=== PATIENT | female | born 1975 | race American Indian/Alaskan Native ===

== ENCOUNTER 2017-09-19 18:45 | Emergency (ER) | payer OTHER ==
[2017-09-19 19:38] LABS: Basophils % (Auto) 1.2 % (0.0-1.8); Eosinophils % (Auto) 0.8 % (0.0-4.3); Hematocrit 37.4 % (30.3-42.9); Hemoglobin 11.9 gm/dl (10.1-14.3); Mean Corpuscular HGB Conc 32 % (30-34); Mean Corpuscular Hemoglobin 27 pg (28-32); Mean Corpuscular Volume 83 fl (79-97); Platelet Count 272 K/mm3 (140-440); Red Blood Count 4.49 M/mm3 (3.65-5.03); Red Cell Distribution Width 15.1 % (13.2-15.2); White Blood Count 6.1 K/mm3 (4.5-11.0)
[2017-09-19 19:43] LABS: INR 0.9 (0.87-1.13)
[2017-09-19 19:49] LABS: Alanine Aminotransferase 15 units/L (7-56); Albumin/Globulin Ratio 1.3 %; Alkaline Phosphatase 47 units/L (35-129); Anion Gap 16 mmol/L; BUN/Creatinine Ratio 21; Blood Urea Nitrogen 19 mg/dL (7-17); Calcium 9.2 mg/dL (8.4-10.2); Carbon Dioxide 25 mmol/L (22-30); Chloride 101.6 mmol/L (98-107); Glucose 66 mg/dL (65-100); Partial Thromboplastin Time 34.9 Sec. (24.2-36.6); Potassium 3.9 mmol/L (3.6-5.0); Sodium 139 mmol/L (137-145)
--- NOTE | 2017-09-19 20:07 | Emergency Department Report ---
ED Chest Pain HPI - General Chief Complaint: Chest Pain Stated Complaint: ABD PAIN/CP Time Seen by Provider: 09/19/17 19:58 Source: patient Mode of arrival: Ambulatory Limitations: No Limitations - History of Present Illness Initial Comments: Patient is 41 years old female history of high blood pressure, she complaining of chest pain described as been going on for more than a week, she also complained of suprapubic tenderness in having difficulty urinating and frequency urination too. MD Complaint: chest pain Pain Location: substernal Severity scale (0 -10): 5 Quality: pressure - Related Data Previous Rx's Medication Instructions Recorded Last Taken Type Acetaminophen/Codeine [Tylenol #3] 1 tab PO Q6H PRN #15 tab 06/03/15 Unknown Rx HYDROcodone/APAP 5-325 [[place] 1 each PO Q6HR PRN #20 tablet 10/25/15 Unknown Rx 5/325] Ibuprofen [Motrin 600 MG tab] 600 mg PO Q8H PRN #20 tablet 10/25/15 Unknown Rx Allergies Allergy/AdvReac Type Severity Reaction Status Date / Time naproxen Allergy Hives Verified 09/19/17 19:19 Heart Score - HEART Score History: Moderately suspicious EKG: Non-specific Age: < 45 Risk factors: 1-2 risk factors Troponin: < normal limit HEART Score: 3 - Critical Actions Critical Actions: 0-3 pts:0.9-1.7%risk of adverse cardiac event.Candidate for discharge ED Review of Systems ROS: Stated complaint: ABD PAIN/CP Other details as noted in HPI Comment: All other systems reviewed and negative Constitutional: denies: chills, fever Respiratory: denies: cough, orthopnea, shortness of breath, SOB with exertion Cardiovascular: chest pain. denies: palpitations, dyspnea on exertion, orthopnea Gastrointestinal: abdominal pain. denies: nausea, vomiting, diarrhea, constipation, hematemesis Genitourinary: urgency, dysuria, frequency. denies: hematuria, discharge Neurological: denies: headache, weakness, numbness, paresthesias ED Past Medical Hx - Past Medical History Previous Medical History?: Yes Hx Hypertension: Yes Hx Pulmonary Embolism: Yes Additional medical history: OBESITY. lupus. dvt - Surgical History Past Surgical History?: Yes Additional Surgical History: HYSTERECTOMY - Social History Smoking Status: Never Smoker Substance Use Type: None - Medications Home Medications: Home Medications Medication Instructions Recorded Confirmed Last Taken Type Acetaminophen/Codeine [Tylenol #3] 1 tab PO Q6H PRN #15 tab 06/03/15 Unknown Rx HYDROcodone/APAP 5-325 [[place] 1 each PO Q6HR PRN #20 tablet 10/25/15 Unknown Rx 5/325] Ibuprofen [Motrin 600 MG tab] 600 mg PO Q8H PRN #20 tablet 10/25/15 Unknown Rx ED Physical Exam - General Limitations: No Limitations General appearance: alert, in no apparent distress - Head Head exam: Present: normocephalic, normal inspection - Eye Eye exam: Present: normal appearance - ENT ENT exam: Present: normal exam - Neck Neck exam: Present: normal inspection - Respiratory Respiratory exam: Present: normal lung sounds bilaterally. Absent: chest wall tenderness - Cardiovascular Cardiovascular Exam: Present: regular rate, normal rhythm, normal heart sounds - GI/Abdominal GI/Abdominal exam: Present: soft, tenderness (suprapubic tenderness), normal bowel sounds. Absent: distended, guarding, rebound, rigid, organomegaly, mass, bruit, pulsatile mass, hernia - Extremities Exam Extremities exam: Present: normal inspection, normal capillary refill - Back Exam Back exam: Present: normal inspection, full ROM. Absent: tenderness, CVA tenderness (R), CVA tenderness (L) - Neurological Exam Neurological exam: Present: alert, oriented X3, CN II-XII intact, normal gait, reflexes normal. Absent: abnormal gait, motor sensory deficit - Skin Skin exam: Present: warm, intact, normal color. Absent: cyanosis ED Course Vital Signs 09/19/17 09/19/17 09/19/17 19:16 19:25 20:28 Temperature 98.7 F 98.8 F Pulse Rate 88 64 Respiratory 16 20 Rate Blood Pressure 150/91 Blood Pressure 131/83 [Left] O2 Sat by Pulse 100 100 Oximetry - Reevaluation(s) Reevaluation #1: 09/19/17 22:30 Patient stated that she is feeling much better. RAMIREZ score - Ramirez Score Age > 65: (0) No Aspirin use within the Past 7 Days: (0) No 3 or more CAD Risk Factors: (0) No 2 or more Angina events in past 24 hrs: (1) Yes Known CAD with more than 50% Stenosis: (0) No Elevated Cardiac Markers: (0) No ST Deviation Greater than 0.5mm: (0) No RAMIREZ Score: 1 ED Medical Decision Making - Lab Data Result diagrams: 09/19/17 19:25 09/19/17 19:25 - EKG Data -: EKG Interpreted by Me EKG shows normal: sinus rhythm Rate: normal - EKG Data Interpretation: no acute changes - Radiology Data Radiology results: image reviewed interpreted by me: Chest x-ray with no acute finding. Critical care attestation.: If time is entered above; I have spent that time in minutes in the direct care of this critically ill patient, excluding procedure time. ED Disposition Clinical Impression: Chest pain, Cystitis Disposition: - TO HOME OR SELFCARE Is pt being admited?: No Condition: Stable Instructions: Chest Pain (ED) Referrals: PRIMARY CARE, [Primary Care Provider] - 3-5 Days
[2017-09-19 21:22] LABS: Bilirubin,Urine NEG (Negative); Blood,Urine NEG (Negative); Ketones,Urine NEG (Negative); Leukocyte Esterase,Urine NEG (Negative); Mucus,Urine FEW /HPF; Nitrite,Urine NEG (Negative); Protein,Urine <15 mg/dL mg/dL (Negative); Urobilinogen,Urine < 2.0 mg/dL (<2.0)
[2017-09-19] MEDS ORDERED: MORPHINE IM ONE (22:27)
[2017-09-19] MEDS ORDERED: ZOFRAN IM ONE (22:27)
[2017-09-19 22:55] VITALS: BP 139/90
--- NOTE | 2017-09-20 08:28 | XRay Report ---
AP CHEST: Chest pain. AP view of the chest demonstrates a normal mediastinal and cardiac contour with clear lungs and normal bony and soft tissue structures. IMPRESSION: Normal AP chest.
== END 2017-09-19 22:50 | disposition home or self-care (01) ==
LOC: ED 18:45
DX: R07.89 Other chest pain (principal); N30.90 Cystitis, unspecified without hematuria; I10 Essential (primary) hypertension; I26.99 Other pulmonary embolism without acute cor pulmonale; E66.9 Obesity, unspecified; Z88.8 Allergy status to other drugs, medicaments and biological substances
CPT/HCPCS: 36415; 71010; 80053; 81001; 84484; 85025; 85610; 85730; 93005; 93010; 96372; 99284; J2270; J2405

== ENCOUNTER 2019-04-10 14:59 | Emergency (ER) | payer OTHER ==
--- NOTE | 2019-04-10 15:47 | Event Note ---
ED Screening Note ED Screening Note: cough and congestion for 1 week no fever This initial assessment/diagnostic orders/clinical plan/treatment(s) is/are subject to change based on patients health status, clinical progression and re- assessment by fellow clinical providers in the ED. Further treatment and workup at subsequent clinical providers discretion. Patient/guardian urged not to elope from the ED as their condition may be serious if not clinically assessed and managed. Initial orders include: labs chest xray
[2019-04-10 16:19] LABS: Basophils % (Auto) 0.5 % (0.0-1.8); Eosinophils % (Auto) 0.5 % (0.0-4.3); Hematocrit 39.4 % (30.3-42.9); Lymphocytes # (Auto) 1.8 K/mm3 (1.2-5.4); Lymphocytes % (Auto) 30.8 % (13.4-35.0); Mean Corpuscular HGB Conc 33 % (30-34); Mean Corpuscular Volume 85 fl (79-97); Monocytes # (Auto) 0.3 K/mm3 (0.0-0.8); Monocytes % (Auto) 5.6 % (0.0-7.3); Platelet Count 329 K/mm3 (140-440); Red Blood Count 4.66 M/mm3 (3.65-5.03); Red Cell Distribution Width 15.5 % (13.2-15.2)
[2019-04-10 16:41] LABS: BUN/Creatinine Ratio 13; Blood Urea Nitrogen 9 mg/dL (7-17); Calcium 9.4 mg/dL (8.4-10.2); Hemolysis Index 30
--- NOTE | 2019-04-10 16:45 | XRay Report ---
PROCEDURE: XR CHEST ROUTINE 2V TECHNIQUE: PA and lateral chest radiographs were obtained. HISTORY: Upper Respiratory Infection COMPARISONS: None. FINDINGS: Frontal and lateral views of the chest were acquired and compared to the prior examination of September 19, 2017. The heart is normal in size. The lungs appear clear. The pleura and mediastinum are within normal christensen its. IMPRESSION: No active disease in the chest This document is electronically signed by Allen Phillips MD., April 10 2019 04:43:26 PM ET
[2019-04-10] MEDS ORDERED: DELTASONE PO ONE (17:17)
[2019-04-10] MEDS ORDERED: TYLENOL #3 PO ONE (17:17)
[2019-04-10] MEDS ORDERED: PROVENTIL IH ONE (17:17)
--- NOTE | 2019-04-10 18:10 | Emergency Department Report ---
- General Chief Complaint: Upper Respiratory Infection Stated Complaint: CHEST PAIN/FEVER Time Seen by Provider: 04/10/19 15:46 Source: patient Mode of arrival: Ambulatory Limitations: No Limitations - History of Present Illness Initial Comments: Patient is a history of bronchitis who presents for cough productive of yellow- green thick with nocturnal fever and chest wall pain with cough there is no n/v no diaphoresis no back pain no sob no dizziness no light headedness , pt denies activity intolerance, pt notes several sick contacts in family with similar symptoms. MD Complaint: fever, cough, sore throat, rhinorrhea, nasal congestion, sinus pain Onset/Timin -: week(s) Severity: moderate Severity scale (0 -10): 4 Quality: aching Consistency: intermittent Improves With: rest Worsens With: activity, other (environmental exposure ) Context: sick contacts Associated Symptoms: fever, myalgias, rhinorrhea, nasal congestion, sore throat, cough, chest pain (chest wall pain ), ear pain. denies: diaphoresis, headache, shortness of breath, abdominal pain, nausea, vomiting, diarrhea, dysuria, rash, confusion, right sweats, weight loss, epistaxis, hoarseness - Related Data Previous Rx's Medication Instructions Recorded Last Taken Type Acetaminophen/Codeine [Tylenol #3] 1 tab PO Q6H PRN #15 tab 06/03/15 Unknown Rx HYDROcodone/APAP 5-325 [[place] 1 each PO Q6HR PRN #20 tablet 10/25/15 Unknown Rx 5/325] Ibuprofen [Motrin 600 MG tab] 600 mg PO Q8H PRN #20 tablet 10/25/15 Unknown Rx Ondansetron [Zofran Odt] 4 mg PO Q8HR PRN #14 tab.rapdis 09/19/17 Unknown Rx Phenazopyridine [Pyridium] 100 mg PO TID #6 tab 09/19/17 Unknown Rx traMADol [Ultram 50 MG tab] 50 mg PO Q4HR PRN #14 tablet 09/19/17 Unknown Rx Acetaminophen [Acetaminophen TAB] 1,000 mg PO Q6HR #30 tablet 04/10/19 Unknown Rx Azithromycin [Zithromax Z-JESSICA] 250 mg PO DAILY 5 Days #6 tab 04/10/19 Unknown Rx Benzonatate [Tessalon Perles] 100 mg PO Q8HR PRN #30 capsule 04/10/19 Unknown Rx predniSONE [Deltasone] 40 mg PO QDAY 5 Days #10 tab 04/10/19 Unknown Rx Allergies Allergy/AdvReac Type Severity Reaction Status Date / Time naproxen Allergy Hives Verified 04/10/19 15:42 ED Review of Systems ROS: Stated complaint: CHEST PAIN/FEVER Other details as noted in HPI Constitutional: malaise Eyes: denies: eye pain, eye discharge, vision change ENT: ear pain, throat pain, congestion Respiratory: cough Cardiovascular: chest pain (chest wall pain ) Endocrine: no symptoms reported Gastrointestinal: denies: abdominal pain, nausea, vomiting, diarrhea, constipation, hematemesis, melena, hematochezia Genitourinary: frequency. denies: urgency, dysuria, hematuria, discharge, abnormal menses, dyspareunia Musculoskeletal: denies: back pain, joint swelling, arthralgia Skin: denies: rash, lesions Neurological: denies: headache, weakness, numbness, paresthesias, confusion, abnormal gait, vertigo Psychiatric: as per HPI Hematological/Lymphatic: as per HPI ED Past Medical Hx - Past Medical History Hx Hypertension: Yes Hx Pulmonary Embolism: Yes Additional medical history: OBESITY. lupus. dvt - Surgical History Additional Surgical History: HYSTERECTOMY - Social History Smoking Status: Never Smoker - Medications Home Medications: Home Medications Medication Instructions Recorded Confirmed Last Taken Type Acetaminophen/Codeine [Tylenol #3] 1 tab PO Q6H PRN #15 tab 06/03/15 Unknown Rx HYDROcodone/APAP 5-325 [[place] 1 each PO Q6HR PRN #20 tablet 10/25/15 Unknown Rx 5/325] Ibuprofen [Motrin 600 MG tab] 600 mg PO Q8H PRN #20 tablet 10/25/15 Unknown Rx Ondansetron [Zofran Odt] 4 mg PO Q8HR PRN #14 tab.rapdis 09/19/17 Unknown Rx Phenazopyridine [Pyridium] 100 mg PO TID #6 tab 09/19/17 Unknown Rx traMADol [Ultram 50 MG tab] 50 mg PO Q4HR PRN #14 tablet 09/19/17 Unknown Rx Acetaminophen [Acetaminophen TAB] 1,000 mg PO Q6HR #30 tablet 04/10/19 Unknown Rx Azithromycin [Zithromax Z-JESSICA] 250 mg PO DAILY 5 Days #6 tab 04/10/19 Unknown Rx Benzonatate [Tessalon Perles] 100 mg PO Q8HR PRN #30 capsule 04/10/19 Unknown Rx predniSONE [Deltasone] 40 mg PO QDAY 5 Days #10 tab 04/10/19 Unknown Rx ED Physical Exam - General Limitations: No Limitations General appearance: alert, in no apparent distress - Head Head exam: Present: atraumatic, normocephalic - Eye Eye exam: Present: normal appearance, PERRL, EOMI. Absent: conjunctival injection, nystagmus, periorbital swelling, periorbital tenderness Pupils: Present: normal accommodation - ENT ENT exam: Present: normal exam, normal orophraynx, mucous membranes moist, TM's normal bilaterally, normal external ear exam - Neck Neck exam: Present: normal inspection, full ROM. Absent: tenderness, meningismus, lymphadenopathy, thyromegaly - Respiratory Respiratory exam: Present: normal lung sounds bilaterally. Absent: respiratory distress, wheezes, rales, rhonchi, stridor, chest wall tenderness, prolonged expiratory - Cardiovascular Cardiovascular Exam: Present: regular rate, normal rhythm, normal heart sounds. Absent: systolic murmur, diastolic murmur, rubs, gallop - GI/Abdominal GI/Abdominal exam: Present: soft, normal bowel sounds. Absent: distended, tenderness, guarding, rebound, rigid, bruit, pulsatile mass, hernia - Rectal Rectal exam: Present: deferred - Extremities Exam Extremities exam: Present: normal inspection, full ROM, normal capillary refill. Absent: tenderness, pedal edema, joint swelling, calf tenderness - Back Exam Back exam: Present: normal inspection, full ROM. Absent: tenderness, CVA t enderness (R), CVA tenderness (L), muscle spasm, paraspinal tenderness, vertebral tenderness, rash noted - Neurological Exam Neurological exam: Present: alert, oriented X3, CN II-XII intact, normal gait, reflexes normal. Absent: motor sensory deficit - Psychiatric Psychiatric exam: Present: normal affect, normal mood - Skin Skin exam: Present: warm, dry, intact, normal color. Absent: rash ED Course Vital Signs 04/10/19 15:41 Temperature 98.3 F Pulse Rate 109 H Respiratory 18 Rate Blood Pressure 151/96 [Right] O2 Sat by Pulse 100 Oximetry ED Medical Decision Making - Lab Data Result diagrams: 04/10/19 16:06 04/10/19 16:06 Labs 04/10/19 04/10/19 16:06 16:06 WBC 5.8 RBC 4.66 Hgb 13.0 Hct 39.4 MCV 85 MCH 28 MCHC 33 RDW 15.5 H Plt Count 329 Lymph % (Auto) 30.8 [place] % (Auto) 5.6 Eos % (Auto) 0.5 Baso % (Auto) 0.5 Lymph # 1.8 [place] # 0.3 Eos # 0.0 Baso # 0.0 Seg Neutrophils % 62.6 Seg Neutrophils # 3.6 Sodium 136 L Potassium 4.0 Chloride 100.7 Carbon Dioxide 22 Anion Gap 17 BUN 9 Creatinine 0.7 Estimated GFR > 60 BUN/Creatinine Ratio 13 Glucose 93 Calcium 9.4 - EKG Data EKG shows normal: sinus rhythm, axis, intervals, QRS complexes, ST-T waves Rate: normal - EKG Data Interpretation: normal EKG (EKG interp by ED Attending. ), LVH - Radiology Data Radiology results: report reviewed, image reviewed carmen chest xray no infiltrates no opacties. - Medical Decision Making Chest Xray is normal no infiltrates no opacities, EKG Nsr no ST Elevated HI, labs are normal symptoms are improved with medications given in ed, pt will be dc'd to home in stable condition at this time. , there is no concern for HI, this is likely Bronchitis, plan albuterol , prednisone, tylenol, tessalon, folllow up with pcp in 2-3 days pt verbalized agreement and understanding of discharge plan. Critical care attestation.: If time is entered above; I have spent that time in minutes in the direct care of this critically ill patient, excluding procedure time. ED Disposition Clinical Impression: Bronchitis URI (upper respiratory infection) Qualifiers: URI type: unspecified viral URI Qualified Code(s): J06.9 - Acute upper respiratory infection, unspecified Disposition: DC-01 TO HOME OR SELFCARE Is pt being admited?: No Does the pt Need Aspirin: No Condition: Stable Instructions: Acute Bronchitis (ED) Prescriptions: Acetaminophen [Acetaminophen TAB] 1,000 mg PO Q6HR #30 tablet predniSONE [Deltasone] 40 mg PO QDAY 5 Days #10 tab Benzonatate [Tessalon Perles] 100 mg PO Q8HR PRN #30 capsule PRN Reason: Cough Azithromycin [Zithromax Z-JESSICA] 250 mg PO DAILY 5 Days #6 tab Forms: AMA Form, Work/School Release Form(ED) Time of Disposition: 18:23
[2019-04-10 19:17] VITALS: BP 162/88
== END 2019-04-10 18:33 | disposition home or self-care (01) ==
LOC: ED 14:59
DX: J06.9 Acute upper respiratory infection, unspecified (principal); J40 Bronchitis, not specified as acute or chronic; I10 Essential (primary) hypertension; Z79.899 Other long term (current) drug therapy; Z86.718 Personal history of other venous thrombosis and embolism; Z79.01 Long term (current) use of anticoagulants; Z86.711 Personal history of pulmonary embolism; Z90.710 Acquired absence of both cervix and uterus; Z88.6 Allergy status to analgesic agent
CPT/HCPCS: 36415; 71046; 80048; 85025; 93005; 93010; 94640; 99284; J7512

== ENCOUNTER 2019-11-13 08:46 | Emergency (ER) | payer OTHER ==
[2019-11-13 12:08] LABS: Basophils % (Auto) 0.7 % (0.0-1.8); Eosinophils # (Auto) 0.1 K/mm3 (0.0-0.4); Eosinophils % (Auto) 2.2 % (0.0-4.3); Hematocrit 35.6 % (30.3-42.9); Hemoglobin 11.8 gm/dl (10.1-14.3); Lymphocytes # (Auto) 1.5 K/mm3 (1.2-5.4); Mean Corpuscular HGB Conc 33 % (30-34); Mean Corpuscular Volume 83 fl (79-97); Monocytes # (Auto) 0.3 K/mm3 (0.0-0.8); Monocytes % (Auto) 9.8 % (0.0-7.3); Platelet Count 277 K/mm3 (140-440); Red Blood Count 4.31 M/mm3 (3.65-5.03); Red Cell Distribution Width 15.3 % (13.2-15.2)
--- NOTE | 2019-11-13 12:16 | XRay Report ---
CHEST 1 VIEW 11/13/2019 11:56 AM INDICATION / CLINICAL INFORMATION: chest pain. COMPARISON: 04/10/2019 FINDINGS: SUPPORT DEVICES: None. HEART / MEDIASTINUM: No significant abnormality. LUNGS / PLEURA: No significant pulmonary or pleural abnormality. No pneumothorax. ADDITIONAL FINDINGS: No significant additional findings. IMPRESSION: 1. No acute findings. Signer Name: Len Fall MD Signed: 11/13/2019 12:12 PM Workstation Name: [id number]
[2019-11-13 12:25] LABS: INR 0.92 (0.87-1.13)
[2019-11-13 12:26] LABS: Partial Thromboplastin Time 26.4 Sec. (24.2-36.6)
[2019-11-13 12:27] LABS: BUN/Creatinine Ratio 19; Blood Urea Nitrogen 13 mg/dL (7-17); Calcium 9.1 mg/dL (8.4-10.2); Hemolysis Index 7
[2019-11-13] MEDS ORDERED: MORPHINE 2 MG/1 ML INJ IV ONE (12:52)
--- NOTE | 2019-11-13 14:34 | Emergency Department Report ---
ED Chest Pain HPI - General Chief Complaint: Chest Pain Stated Complaint: CHEST/MID BACK PAIN Time Seen by Provider: 11/13/19 11:21 Source: patient Mode of arrival: Ambulatory Limitations: No Limitations - History of Present Illness Initial Comments: 43-year-old female with history of chronic back pain presents to the ED with complaint of chest pain 2 days. Patient states pain is left-sided, intermittent, sharp, and lasts only for a few seconds when it comes. Patient denies any pleuritic pain, denies shortness of breath. Patient splints, as well as bilateral lower extremities. Denies fever or cough. Patient reports history of chronic back pain w/ left-sided sciatica for which she has been under the care of an ortho spine surgeon. Pt reports she has had MRI's previously, epidurals, and steroid injections. Patient reports this most recent exacerbation has been ongoing x 2 weeks. Recently saw her spine physician 1 week ago for same. MD Complaint: chest pain -: days(s) (2) Onset: during rest Pain Location: left chest Pain Radiation: none Severity: mild Severity scale (0 -10): 9 Quality: sharp Consistency: intermittent Improves With: nothing Worsens With: nothing re: denies: nausea, vomting, diaphoresis, dyspnea Other Symptoms: leg swelling. denies: cough, fever - Related Data Previous Rx's Medication Instructions Recorded Last Taken Type Acetaminophen/Codeine [Tylenol #3] 1 tab PO Q6H PRN #15 tab 06/03/15 Unknown Rx HYDROcodone/APAP 5-325 [[place] 1 each PO Q6HR PRN #20 tablet 10/25/15 Unknown Rx 5/325] Ibuprofen [Motrin 600 MG tab] 600 mg PO Q8H PRN #20 tablet 10/25/15 Unknown Rx Ondansetron [Zofran Odt] 4 mg PO Q8HR PRN #14 tab.rapdis 09/19/17 Unknown Rx Phenazopyridine [Pyridium] 100 mg PO TID #6 tab 09/19/17 Unknown Rx traMADoL [Ultram 50 MG tab] 50 mg PO Q4HR PRN #14 tablet 09/19/17 Unknown Rx Acetaminophen [Acetaminophen TAB] 1,000 mg PO Q6HR #30 tablet 04/10/19 Unknown Rx Azithromycin [Zithromax Z-JESSICA] 250 mg PO DAILY 5 Days #6 tab 04/10/19 Unknown Rx Benzonatate [Tessalon Perles] 100 mg PO Q8HR PRN #30 capsule 04/10/19 Unknown Rx predniSONE [Deltasone] 40 mg PO QDAY 5 Days #10 tab 04/10/19 Unknown Rx methOCARBAMOL [Robaxin TAB] 500 mg PO Q8HR PRN #20 tablet 11/13/19 Unknown Rx traMADoL [Ultram] 50 mg PO Q6HR PRN #7 tablet 11/13/19 Unknown Rx Allergies Allergy/AdvReac Type Severity Reaction Status Date / Time naproxen Allergy Hives Verified 11/13/19 08:48 Heart Score - HEART Score History: Slightly suspicious EKG: Normal Age: 45-65 Risk factors: 1-2 risk factors Troponin: < normal limit HEART Score: 2 ED Review of Systems ROS: Stated complaint: CHEST/MID BACK PAIN Other details as noted in HPI Comment: All other systems reviewed and negative Constitutional: denies: chills, fever Respiratory: denies: shortness of breath Cardiovascular: chest pain Musculoskeletal: back pain, other (reports bilat lower leg swelling) ED Past Medical Hx - Past Medical History Hx Hypertension: Yes Hx Pulmonary Embolism: Yes Additional medical history: OBESITY FIBROMYAGLIA. lupus. dvt - Surgical History Additional Surgical History: HYSTERECTOMY - Social History Smoking Status: Never Smoker Substance Use Type: None - Medications Home Medications: Home Medications Medication Instructions Recorded Confirmed Last Taken Type Acetaminophen/Codeine [Tylenol #3] 1 tab PO Q6H PRN #15 tab 06/03/15 Unknown Rx HYDROcodone/APAP 5-325 [[place] 1 each PO Q6HR PRN #20 tablet 10/25/15 Unknown Rx 5/325] Ibuprofen [Motrin 600 MG tab] 600 mg PO Q8H PRN #20 tablet 10/25/15 Unknown Rx Ondansetron [Zofran Odt] 4 mg PO Q8HR PRN #14 tab.rapdis 09/19/17 Unknown Rx Phenazopyridine [Pyridium] 100 mg PO TID #6 tab 09/19/17 Unknown Rx traMADoL [Ultram 50 MG tab] 50 mg PO Q4HR PRN #14 tablet 09/19/17 Unknown Rx Acetaminophen [Acetaminophen TAB] 1,000 mg PO Q6HR #30 tablet 04/10/19 Unknown Rx Azithromycin [Zithromax Z-JESSICA] 250 mg PO DAILY 5 Days #6 tab 04/10/19 Unknown Rx Benzonatate [Tessalon Perles] 100 mg PO Q8HR PRN #30 capsule 04/10/19 Unknown Rx predniSONE [Deltasone] 40 mg PO QDAY 5 Days #10 tab 04/10/19 Unknown Rx methOCARBAMOL [Robaxin TAB] 500 mg PO Q8HR PRN #20 tablet 11/13/19 Unknown Rx traMADoL [Ultram] 50 mg PO Q6HR PRN #7 tablet 11/13/19 Unknown Rx ED Physical Exam - General Limitations: No Limitations General appearance: alert, in no apparent distress, obese - Head Head exam: Present: atraumatic, normocephalic - Eye Eye exam: Present: normal appearance, EOMI - ENT ENT exam: Present: mucous membranes moist - Neck Neck exam: Present: normal inspection - Respiratory Respiratory exam: Present: normal lung sounds bilaterally. Absent: respiratory distress - Cardiovascular Cardiovascular Exam: Present: regular rate, normal rhythm - GI/Abdominal GI/Abdominal exam: Present: soft. Absent: distended, tenderness - Extremities Exam Extremities exam: Present: other (1+ edema BLE) - Back Exam Back exam: Present: tenderness (lower lumbar, sacral region) - Neurological Exam Neurological exam: Present: alert, oriented X3, normal gait (pt ambulatory w/o assistance). Absent: motor sensory deficit - Psychiatric Psychiatric exam: Present: normal affect, normal mood - Skin Skin exam: Present: warm, dry, intact, normal color. Absent: rash ED Course Vital Signs 11/13/19 11/13/19 11/13/19 08:59 11:10 11:27 Temperature 98.0 F 98.3 F Pulse Rate 93 H 69 Respiratory 14 20 Rate Blood Pressure 124/87 Blood Pressure 138/94 124/87 [Left] O2 Sat by Pulse 100 100 Oximetry 11/13/19 11/13/19 11/13/19 11:30 11:45 12:00 Temperature Pulse Rate 84 84 85 Respiratory 21 17 16 Rate Blood Pressure 121/92 122/83 129/91 Blood Pressure [Left] O2 Sat by Pulse 98 99 Oximetry 11/13/19 11/13/19 11/13/19 12:15 12:30 12:45 Temperature Pulse Rate 85 85 86 Respiratory 20 21 19 Rate Blood Pressure 130/91 128/92 127/91 Blood Pressure [Left] O2 Sat by Pulse 99 95 97 Oximetry 11/13/19 11/13/19 11/13/19 13:00 13:15 13:30 Temperature Pulse Rate 82 88 83 Respiratory 18 18 19 Rate Blood Pressure 121/87 123/74 125/79 Blood Pressure [Left] O2 Sat by Pulse 98 98 99 Oximetry 11/13/19 13:45 Temperature Pulse Rate 85 Respiratory 20 Rate Blood Pressure 127/84 Blood Pressure [Left] O2 Sat by Pulse 100 Oximetry RAMIREZ score - Ramirez Score Age > 65: (0) No Aspirin use within the Past 7 Days: (0) No 3 or more CAD Risk Factors: (0) No 2 or more Angina events in past 24 hrs: (1) Yes Known CAD with more than 50% Stenosis: (0) No Elevated Cardiac Markers: (0) No ST Deviation Greater than 0.5mm: (0) No RAMIREZ Score: 1 ED Medical Decision Making - Lab Data Result diagrams: 11/13/19 11:52 11/13/19 11:52 - EKG Data -: EKG Interpreted by [place] EKG shows normal: sinus rhythm, axis, intervals, QRS complexes, ST-T waves Rate: normal - EKG Data Interpretation: no acute changes - Radiology Data Radiology results: report reviewed, image reviewed - Medical Decision Making - EKG normal, trop negative x 2 - CXR and CTA Chest unremarkable - pt will be discharged home - pt referred to the [facility] for urgent cardiac follow-u p - Chronic back pain is stable and unchanged, advised to f/u w/ her critical care nurse specialist - return precautions given - Differential Diagnosis ACS, PE, pneumonia, pulm edema Critical care attestation.: If time is entered above; I have spent that time in minutes in the direct care of this critically ill patient, excluding procedure time. ED Disposition Clinical Impression: Chronic back pain, Acute chest pain Disposition: - TO HOME OR SELFCARE Is pt being admited?: No Condition: Stable Instructions: Chest Pain (ED), Chronic Back Pain (ED) Prescriptions: methOCARBAMOL [Robaxin TAB] 500 mg PO Q8HR PRN #20 tablet PRN Reason: Muscle Spasm traMADoL [Ultram] 50 mg PO Q6HR PRN #7 tablet PRN Reason: Pain Referrals: PRIMARY CARE, [Primary Care Provider] - 3-5 Days Time of Disposition: 14:37
--- NOTE | 2019-11-13 14:39 | Cat Scan Report ---
CTA CHEST WITH IV CONTRAST INDICATION: chest pain. TECHNIQUE: Axial CT images were obtained through the chest after injection of 100 mL of Omnipaque 300 IV contras t. 3 plane MIP reconstructions were produced. All CT scans at this location are performed using CT do se reduction for ALARA by means of automated exposure control. COMPARISON: None available. FINDINGS: Pulmonary Arteries: No pulmonary emboli. Lungs: No significant abnormality. Trachea and Bronchi: No significant abnormality. Heart and Pericardium: No significant abnormality. Vasculature: No significant abnormality. Lymphatics: No lymphadenopathy. Additional Findings: None. Upper Abdomen: No acute findings. Skeletal Structures: No significant osseous abnormality. IMPRESSION: 1. No CT evidence for pulmonary embolism. 2. No acute findings. Signer Name: Len Fall MD Signed: 11/13/2019 2:35 PM Workstation Name: [id number]
[2019-11-13 17:47] VITALS: BP 124/87
== END 2019-11-13 16:48 | disposition home or self-care (01) ==
LOC: ED 08:46
DX: R07.89 Other chest pain (principal); G89.29 Other chronic pain; M54.9 Dorsalgia, unspecified; I10 Essential (primary) hypertension; Z90.710 Acquired absence of both cervix and uterus; Z79.899 Other long term (current) drug therapy; Z88.8 Allergy status to other drugs, medicaments and biological substances
CPT/HCPCS: 36415; 71045; 71275; 80048; 84484; 84703; 85025; 85379; 85610; 85730; 93005; 93010; 96374; 99284; J2270; Q9967

== ENCOUNTER 2021-11-22 09:04 | Emergency (ER) | payer BC, OTHER ==
[2021-11-22 09:25] VITALS: BP 144/82
[2021-11-22] MEDS ORDERED: ACETAMINOPHEN 500 MG TAB PO ONE (10:15)
--- NOTE | 2021-11-22 10:16 | Emergency Department Report ---
ED General Adult HPI - General Chief complaint: Chest Pain Stated complaint: Chest wall pain with cough Time Seen by Provider: 11/22/21 09:43 Source: patient, RN notes reviewed, old records reviewed Mode of arrival: Ambulatory Limitations: No Limitations - History of Present Illness Initial comments: The patient was evaluated in the emergency department for symptoms described in the history of present illness. He/she was evaluated in the context of the global COVID-19 pandemic, which necessitated consideration that the patient might be at risk for infection with the virus that causes COVID-19. Institutional protocols and algorithms that pertain to the evaluation of patients at risk for COVID-19 are in a state of rapid change based on informati on released by regulatory bodies including the CDC and federal and state organizations. These policies and algorithms were followed during the patient's care in the emergency department. Please note that these policies, procedures and recommendations changed on a rapid basis. During the history and physical examination, I am chaperoned LATISHA Heaton The patient is a 45-year-old female, with a history of body mass index of 39, reported history of lupus, not currently maintained on long-term medications, but has previously taken steroids, history of hysterectomy, who is not COVID-19 vaccinated, who presents to the ER with 4 days of chest wall pain associate with dry cough and occasional clear mucus. Mild headache. Also complains of nontraumatic left-sided loss of hearing, associate with left- sided ear pain. No abdominal pain. Positive vomiting x1. No diaphoresis. No calf or leg pain. No travel, surgery, immobilization, DVT/PE risk factors. Of note, this patient was evaluated at this hospital in the past for chest pain, had a CT scan of the chest which was negative for pulmonary embolism. The patient reports to me that she does not smoke at this time. She has taken Tylenol at home with minimal improvement of symptoms. -: Gradual, days(s) Location: chest (Central and bilateral anterior chest wall) Radiation: non-radiation Quality: aching Consistency: constant Improves with: rest Worsens with: movement (Movement, cough and palpation) - Related Data Previous Rx's Medication Instructions Recorded Last Taken Type Ibuprofen [Motrin 600 MG tab] 600 mg PO Q8H PRN #20 tablet 10/25/15 Unknown Rx Ondansetron [Zofran Odt] 4 mg PO Q8HR PRN #14 tab.rapdis 09/19/17 Unknown Rx Acetaminophen [Acetaminophen TAB] 1,000 mg PO Q6HR #30 tablet 04/10/19 Unknown Rx Benzonatate [Tessalon Perles] 100 mg PO Q8HR PRN #30 capsule 04/10/19 Unknown Rx Acetaminophen [Non-Aspirin Extra 500 mg PO Q6HR PRN #30 tablet 11/22/21 Unknown Rx Strength] Albuterol Sulfate [Proair 90 mcg IH Q4HR PRN #2 aer.pow.ba 11/22/21 Unknown Rx Respiclick] Benzonatate [Tessalon Perles] 100 mg PO Q8HR PRN #30 capsule 11/22/21 Unknown Rx DOXYCYCLINE Hyclate [Vibramycin] 100 mg PO Q12HR #14 capsule 11/22/21 Unknown Rx Ondansetron [Zofran Odt] 4 mg PO Q8HR PRN #20 tab.rapdis 11/22/21 Unknown Rx Allergies Allergy/AdvReac Type Severity Reaction Status Date / Time naproxen Allergy Hives Verified 11/22/21 09:25 ED Review of Systems ROS: Stated complaint: CHEST PAIN X4DAYS Other details as noted in HPI Constitutional: denies: fever Eyes: denies: eye discharge ENT: ear pain, hearing loss. denies: throat pain, epistaxis Respiratory: cough. denies: wheezing Cardiovascular: other (Chest wall pain) Gastrointestinal: nausea, vomiting. denies: hematemesis, melena, hematochezia Genitourinary: denies: dysuria Neurological: denies: weakness ED Past Medical Hx - Past Medical History Hx Hypertension: Yes Hx Pulmonary Embolism: Yes Additional medical history: OBESITY FIBROMYAGLIA. lupus. dvt - Surgical History Additional Surgical History: HYSTERECTOMY - Social History Smoking Status: Never Smoker Substance Use Type: None - Medications Home Medications: Home Medications Medication Instructions Recorded Confirmed Last Taken Type Ibuprofen [Motrin 600 MG tab] 600 mg PO Q8H PRN #20 tablet 10/25/15 Unknown Rx Ondansetron [Zofran Odt] 4 mg PO Q8HR PRN #14 tab.rapdis 09/19/17 Unknown Rx Acetaminophen [Acetaminophen TAB] 1,000 mg PO Q6HR #30 tablet 04/10/19 Unknown Rx Benzonatate [Tessalon Perles] 100 mg PO Q8HR PRN #30 capsule 04/10/19 Unknown Rx Acetaminophen [Non-Aspirin Extra 500 mg PO Q6HR PRN #30 tablet 11/22/21 Unknown Rx Strength] Albuterol Sulfate [Proair 90 mcg IH Q4HR PRN #2 aer.pow.ba 11/22/21 Unknown Rx Respiclick] Benzonatate [Tessalon Perles] 100 mg PO Q8HR PRN #30 capsule 11/22/21 Unknown Rx DOXYCYCLINE Hyclate [Vibramycin] 100 mg PO Q12HR #14 capsule 11/22/21 Unknown Rx Ondansetron [Zofran Odt] 4 mg PO Q8HR PRN #20 tab.rapdis 11/22/21 Unknown Rx ED Physical Exam - General Limitations: No Limitations General appearance: alert, in no apparent distress, obese - Head Head exam: Present: atraumatic, normocephalic - Eye Eye exam: Present: normal appearance, EOMI. Absent: nystagmus - ENT ENT exam: Present: normal exam, mucous membranes moist. Absent: TM's normal bilaterally (Right tympanic membrane is clear and within normal limits. Left tympanic membrane is opacified, diminished light reflex. There is no mastoid tenderness.) - Neck Neck exam: Present: normal inspection. Absent: tenderness, meningismus - Respiratory Respiratory exam: Present: normal lung sounds bilaterally, chest wall tenderness. Absent: respiratory distress, wheezes, rales, rhonchi, stridor, decreased breath sounds - Cardiovascular Cardiovascular Exam: Present: regular rate, normal rhythm, normal heart sounds. Absent: bradycardia, tachycardia, irregular rhythm, systolic murmur, diastolic murmur, rubs, gallop - GI/Abdominal GI/Abdominal exam: Present: soft, normal bowel sounds. Absent: distended, tenderness, guarding, rebound, rigid, pulsatile mass - Extremities Exam Extremities exam: Present: normal inspection, full ROM, other (2+ pulses noted in the bilateral upper and lower extremities. There is no palpable cord. negative Homans sign. Muscular compartments are soft. The pelvis is stable.). Absent: pedal edema, calf tenderness - Back Exam Back exam: Present: normal inspection - Neurological Exam Neurological exam: Present: alert, oriented X3 - Psychiatric Psychiatric exam: Present: normal affect, normal mood - Skin Skin exam: Present: warm, dry, intact, normal color. Absent: rash ED Course Vital Signs 11/22/21 09:23 Temperature 98.2 F Pulse Rate 81 Respiratory 14 Rate Blood Pressure 144/82 [Right] O2 Sat by Pulse 100 Oximetry ED Medical Decision Making - Lab Data Result diagrams: 11/22/21 10:34 Vital Signs 11/22/21 09:23 Temperature 98.2 F Pulse Rate 81 Respiratory 14 Rate Blood Pressure 144/82 [Right] O2 Sat by Pulse 100 Oximetry Lab Results 11/22/21 11/22/21 Range/Units 10:34 10:34 WBC 3.9 L (4.5-11.0) K/mm3 RBC 4.62 (3.65-5.03) M/mm3 Hgb 12.2 (10.1-14.3) gm/dl Hct 38.3 (30.3-42.9) % MCV 83 (79-97) fl MCH 26 L (28-32) pg MCHC 32 (30-34) % RDW 16.0 H (13.2-15.2) % Plt Count 314 (140-440) K/mm3 Total Creatine Kinase 140 H (30-135) units/L Troponin T < 0.010 (0.00-0.029) ng/mL - EKG Data -: EKG Interpreted by Ok EKG shows normal: sinus rhythm Rate: normal - EKG Data 11/22/21 11:25 The EKG is interpreted at 09: 34 EKG today is unchanged from prior EKG from 11/13/2019 Sinus rhythm, rate 71 bpm. Normal axis, normal intervals, normal P wave axis, left ventricular hypertrophy. Motion artifact. Not a STEMI. T wave abnormalities in anteroseptal leads appear to be chronic. - Radiology Data Radiology results: pending, report reviewed, image reviewed CHEST 2 VIEWS INDICATION / CLINICAL INFORMATION: chest pain. COMPARISON: 11/13/2019 FINDINGS: SUPPORT DEVICES: None. HEART / MEDIASTINUM: No significant abnormality. LUNGS / PLEURA: No significant pulmonary or pleural abnormality. No pneumothorax. ADDITIONAL FINDINGS: No significant additional findings. IMPRESSION: 1. No acute findings. Signer Name: Elpidio Tapia MD Signed: 11/22/2021 9:35 AM Workstation Name: [id number] CTA CHEST WITH IV CONTRAST INDICATION: chest pain. TECHNIQUE: Axial CT images were obtained through the chest after injection of 100 mL of Omnipaque 300 IV contrast. 3 plane MIP reconstructions were produced. All CT scans at this location are performed using CT dose reduction for ALARA by means of automated exposure control. COMPARISON: None available. FINDINGS: Pulmonary Arteries: No pulmonary emboli. Lungs: No significant abnormality. Trachea and Bronchi: No significant abnormality. Heart and Pericardium: No significant abnormality. Vasculature: No significant abnormality. Lymphatics: No lymphadenopathy. Additional Findings: None. Upper Abdomen: No acute findings. Skeletal Structures: No significant osseous abnormality. IMPRESSION: 1. No CT evidence for pulmonary embolism. 2. No acute findings. Signer Name: Len Fall MD Signed: 11/13/2019 1:35 PM Workstation Name: [id number] - Medical Decision Making Differential diagnosis, including but not limited to: Bronchitis, costochondritis, otitis media, coronary artery disease, myocarditis, pericarditis Assessment and plan: 45-year-old female with 2 complaints. Complaints #1, chest wall pain associated with cough. Patient not currently tachycardic, tachypneic or hypoxic, low risk by Wells criteria for pulmonary embolism, PERC negative at this time, history of "lupus" reviewed and appreciated, patient reports this diagnosis was made secondary to having multiple myalgias and arthralgias. She cannot confirm a specific serologic diagnosis. Patient ruled out for pulmonary embolism in the past at this particular facility. She is not hypoxic, so even if COVID-19 is present, she does not require admission or hospitalization at this time. EKG unchanged from prior, troponin negative x1 in the context of 4 days of symptoms. Therefore, myocardial infarction is ruled out, and patient at low risk for major adverse cardiac event as per heart score. Given unremarkable troponin, CK, EKG, lack of fever and tachycardia, myocarditis, pericarditis very unlikely. This is most likely costochondritis. Complete #2, left-sided otitis media. Antibiotics, supportive care, outpatient follow-up. Patient reports that she is allergic/intolerant to Naprosyn and NSAIDs. She is taking Tylenol and aspirin at home. She may continue Tylenol and aspirin. Explained why narcotic prescriptions would not be dispensed for this condition. Patient observed in this ER for hours without clinical deterioration. Suitable for discharge with outpatient follow-up. Return precautions reviewed Critical care attestation.: If time is entered above; I have spent that time in minutes in the direct care of this critically ill patient, excluding procedure time. ED Disposition Clinical Impression: Chest wall pain, Otitis media, COVID-19 vaccination not done, Bronchitis Disposition: 01 HOME / SELF CARE / HOMELESS Is pt being admited?: No Does the pt Need Aspirin: No Condition: Good Instructions: Chronic Bronchitis (ED), Costochondritis, Acute Bronchitis, Adult Additional Instructions: Recommend that patient complete outpatient COVID-19 vaccination series. Please take the cough medication, pain medication, breathing medication and antibiotics as needed and directed. Symptoms likely coming from upper respiratory tract infection/bronchitis, with superimposed chest wall pain/costochondritis. Bronchitis symptoms typically take 3 to 6 weeks to resolve. Recommend follow-up with your primary care doctor within the next 7 to 10 days for repeat checkup and evaluation. Please return to the emergency room right away with new pain, worsened pain, migration of pain, projectile vomiting, change in mental status, confusion, inability tolerate liquid feeds, new, worsened or different symptoms not present on the initial emergency room evaluation Referrals: [facility] [Provider Group] - 7-10 days Heart Score - HEART Score History: Slightly suspicious EKG: Non-specific Age: 45-65 Risk factors: 1-2 risk factors Troponin: < normal limit HEART Score: 3 - EKG Read Time Time EKG Completed: 09:34 EKG Read Time: 09:34 - Critical Actions Critical Actions: 0-3 pts:0.9-1.7%risk of adverse cardiac event.Candidate for discharge
--- NOTE | 2021-11-22 10:39 | XRay Report ---
CHEST 2 VIEWS INDICATION / CLINICAL INFORMATION: chest pain. COMPARISON: 11/13/2019 FINDINGS: SUPPORT DEVICES: None. HEART / MEDIASTINUM: No significant abnormality. LUNGS / PLEURA: No significant pulmonary or pleural abnormality. No pneumothorax. ADDITIONAL FINDINGS: No significant additional findings. IMPRESSION: 1. No acute findings. Signer Name: Elpidio Tapia MD Signed: 11/22/2021 10:35 AM Workstation Name: [id number]
[2021-11-22 11:17] LABS: Hematocrit 38.3 % (30.3-42.9); Hemoglobin 12.2 gm/dl (10.1-14.3); Mean Corpuscular HGB Conc 32 % (30-34); Mean Corpuscular Volume 83 fl (79-97); Platelet Count 314 K/mm3 (140-440); Red Blood Count 4.62 M/mm3 (3.65-5.03)
--- NOTE | 2021-11-23 08:48 | Electrocardiograph Report ---
[facility] Test Date: 2021-11-22 Test Time: 09:34:09 Pat Name: MAGEN ALVARADO Department: Room: Gender: F Qa Automation Developer: WILMER : 1975 Requested By: LESTER WILLARD Order Number: [id number] Reading MD: Kirk Queen Measurements Intervals [place] Rate: 71 P: 59 [place]: 148 QRS: 65 QRSD: 92 T: 56 QT: 424 QTc: 460 Interpretive Statements Sinus rhythm Consider left ventricular hypertrophy nonspecific st-t No previous ECG available for comparison Electronically Signed On 11-23-2021 8:47:34 EST by Kirk Queen
== END 2021-11-22 11:56 | disposition home or self-care (01) ==
LOC: ED 09:04
DX: R07.9 Chest pain, unspecified (principal); H66.92 Otitis media, unspecified, left ear; J40 Bronchitis, not specified as acute or chronic; I10 Essential (primary) hypertension; Z88.7 Allergy status to serum and vaccine
CPT/HCPCS: 36415; 71046; 82550; 84484; 85027; 93005; 93010; 99283

== ENCOUNTER 2021-12-21 10:18 | Emergency (ER) | payer BC ==
[2021-12-21] MEDS ORDERED: SODIUM CHLORIDE 0.9% 1000 ML 1,000 ML IV ONE (11:56)
[2021-12-21] MEDS ORDERED: fentaNYL 100 MCG/2 ML INJ IV ONE (11:56)
--- NOTE | 2021-12-21 11:56 | Emergency Department Report ---
ED General Adult HPI - General Chief complaint: Chest Pain Stated complaint: CHEST PAIN/RT ARM PAIN Time Seen by Provider: 12/21/21 11:49 Source: patient Mode of arrival: Ambulatory Limitations: No Limitations - History of Present Illness Initial comments: Patient presents secondary right-sided chest pain. For the last 4 days she has had right-sided chest pain. Pain is sharp and stabbing. It is pleuritic. It is worse with certain movements as well. The pain hurts under the right breast, into the right back area, and up into the right shoulder. She states that she feels short of breath associated with this. Approximately 10 years ago she had a pulmonary embolism. She was on anticoagulation then. She is not currently anticoagulated. She was never told why she had a blood clot to begin with. She had no risk factor at that time. There have been no recent travel or surgery. She was not on oral contraceptives. There was no family history of thromboembolic disease. - Related Data Previous Rx's Medication Instructions Recorded Last Taken Type Ondansetron [Zofran Odt] 4 mg PO Q8HR PRN #14 tab.rapdis 09/19/17 Unknown Rx Acetaminophen [Acetaminophen TAB] 1,000 mg PO Q6HR #30 tablet 04/10/19 Unknown Rx Benzonatate [Tessalon Perles] 100 mg PO Q8HR PRN #30 capsule 04/10/19 Unknown Rx Acetaminophen [Non-Aspirin Extra 500 mg PO Q6HR PRN #30 tablet 11/22/21 Unknown Rx Strength] Albuterol Sulfate [Proair 90 mcg IH Q4HR PRN #2 aer.pow.ba 11/22/21 Unknown Rx Respiclick] Benzonatate [Tessalon Perles] 100 mg PO Q8HR PRN #30 capsule 11/22/21 Unknown Rx DOXYCYCLINE Hyclate [Vibramycin] 100 mg PO Q12HR #14 capsule 11/22/21 Unknown Rx Ondansetron [Zofran Odt] 4 mg PO Q8HR PRN #20 tab.rapdis 11/22/21 Unknown Rx Ibuprofen [Motrin 600 MG tab] 600 mg PO Q8H PRN #20 tablet 12/21/21 Unknown Rx Allergies Allergy/AdvReac Type Severity Reaction Status Date / Time naproxen Allergy Hives Verified 11/22/21 09:25 ED Review of Systems ROS: Stated complaint: CHEST PAIN/RT ARM PAIN Other details as noted in HPI Comment: All other systems reviewed and negative Constitutional: denies: fever Eyes: denies: vision change ENT: denies: epistaxis Respiratory: denies: cough Cardiovascular: as per HPI Endocrine: denies: unexplained weight loss Gastrointestinal: denies: abdominal pain Genitourinary: denies: dysuria Musculoskeletal: as per HPI Skin: denies: rash Neurological: denies: headache Hematological/Lymphatic: denies: easy bruising ED Past Medical Hx - Past Medical History Previous Medical History?: Yes Hx Hypertension: Yes Hx Pulmonary Embolism: Yes Additional medical history: OBESITY FIBROMYAGLIA. lupus. dvt - Surgical History Past Surgical History?: Yes Additional Surgical History: HYSTERECTOMY - Family History Family history: other (Negative for PE) - Social History Smoking Status: Never Smoker Substance Use Type: None - Medications Home Medications: Home Medications Medication Instructions Recorded Confirmed Last Taken Type Ondansetron [Zofran Odt] 4 mg PO Q8HR PRN #14 tab.rapdis 09/19/17 Unknown Rx Acetaminophen [Acetaminophen TAB] 1,000 mg PO Q6HR #30 tablet 04/10/19 Unknown Rx Benzonatate [Tessalon Perles] 100 mg PO Q8HR PRN #30 capsule 04/10/19 Unknown Rx Acetaminophen [Non-Aspirin Extra 500 mg PO Q6HR PRN #30 tablet 11/22/21 Unknown Rx Strength] Albuterol Sulfate [Proair 90 mcg IH Q4HR PRN #2 aer.pow.ba 11/22/21 Unknown Rx Respiclick] Benzonatate [Tessalon Perles] 100 mg PO Q8HR PRN #30 capsule 11/22/21 Unknown Rx DOXYCYCLINE Hyclate [Vibramycin] 100 mg PO Q12HR #14 capsule 11/22/21 Unknown Rx Ondansetron [Zofran Odt] 4 mg PO Q8HR PRN #20 tab.rapdis 11/22/21 Unknown Rx Ibuprofen [Motrin 600 MG tab] 600 mg PO Q8H PRN #20 tablet 12/21/21 Unknown Rx ED Physical Exam - General Limitations: No Limitations, Other (Pulse ox noted and normal) General appearance: alert, in distress (Uncomfortable) - Head Head exam: Present: atraumatic, normocephalic - Eye Eye exam: Present: normal appearance, PERRL, EOMI - ENT ENT exam: Present: normal orophraynx, normal external ear exam - Neck Neck exam: Present: normal inspection. Absent: meningismus - Respiratory Respiratory exam: Present: normal lung sounds bilaterally. Absent: respiratory distress - Cardiovascular Cardiovascular Exam: Present: regular rate, normal rhythm - GI/Abdominal GI/Abdominal exam: Present: soft. Absent: tenderness - Extremities Exam Extremities exam: Present: normal capillary refill. Absent: calf tenderness - Back Exam Back exam: Absent: CVA tenderness (R), CVA tenderness (L) - Neurological Exam Neurological exam: Present: alert, oriented X3, CN II-XII intact. Absent: motor sensory deficit - Psychiatric Psychiatric exam: Present: normal affect, normal mood - Skin Skin exam: Present: warm, dry ED Course Vital Signs 12/21/21 12/21/21 11:30 12:04 Temperature 98.3 F Pulse Rate 91 H Respiratory 18 Rate Blood Pressure 120/72 [Right] O2 Sat by Pulse 99 100 Oximetry - Reevaluation(s) Reevaluation #1: 12/21/21 11:56 IV and labs ordered. Old records noted. Reevaluation #2: 12/21/21 13:52 CT was noted and the patient was discharged ED Medical Decision Making - Lab Data Result diagrams: 12/21/21 12:13 12/21/21 12:13 - Radiology Data Radiology results: report reviewed - Medical Decision Making Patient presents with right-sided chest pain and concern for pulmonary embolism. There is no evidence of PE on CT. Likewise, there is no evidence of pneumonia or pneumothorax. She does not have evidence of congestive heart failure. Pain is strictly right-sided. She has no left-sided symptoms. This is not exertion al. I do not believe this represents angina equivalent. Patient was treated symptomatically and referred for outpatient evaluation and follow-up. Critical Care Time: No Critical care attestation.: If time is entered above; I have spent that time in minutes in the direct care of this critically ill patient, excluding procedure time. ED Disposition Clinical Impression: Right-sided chest pain Disposition: HOME / SELF CARE / HOMELESS Is pt being admited?: No Condition: Stable Instructions: Nonspecific Chest Pain, Adult, Pain Without a Known Cause Additional Instructions: Drink plenty of water. Return for problems. Follow-up with your regular doctor. Prescriptions: Ibuprofen [Motrin 600 MG tab] 600 mg PO Q8H PRN #20 tablet PRN Reason: Pain Referrals: PRIMARY CARE, [Referring] - 3-5 Days LANA MANCUSO MD [Staff Physician] - 3-5 Days
[2021-12-21 12:28] LABS: Hematocrit 34.6 % (30.3-42.9); Mean Corpuscular HGB Conc 35 % (30-34); Mean Corpuscular Volume 81 fl (79-97); Platelet Count 289 K/mm3 (140-440); Red Blood Count 4.26 M/mm3 (3.65-5.03); Red Cell Distribution Width 15.7 % (13.2-15.2)
[2021-12-21 12:50] LABS: Alanine Aminotransferase 14 units/L (7-56); Albumin 3.7 g/dL (3.9-5); Blood Urea Nitrogen 12 mg/dL (7-17); Hemolysis Index 126
[2021-12-21 12:55] LABS: BUN/Creatinine Ratio 20
--- NOTE | 2021-12-21 13:45 | Cat Scan Report ---
CTA CHEST WITH CONTRAST INDICATION / CLINICAL INFORMATION: Pleuritic right chest pain with history of PE OMNI 350 100 ML. TECHNIQUE: Axial CT images were obtained through the chest after injection of 100 cc Omnipaque 350 IV contrast. 3 plane MIP and/or 3D reconstructions were produced. All CT scans at this location are per formed using CT dose reduction for ALARA by means of automated exposure control. COMPARISON: CTA chest 11/13/2019 FINDINGS: VASCULAR FINDINGS: PULMONARY ARTERY: Pulmonary artery is normal in size. No filling defects are present compatible with pulmonary artery embolus.. THORACIC AORTA: No significant abnormality. CORONARY ARTERY CALCIFICATION: Absent -- None. NONVASCULAR FINDINGS: LOWER NECK:Soft tissues of the lower neck and thyroid demonstrate no significant abnormalities or acu te findings. HEART: No significant abnormality. MEDIASTINUM / JOESPH: No significant abnormality. ESOPHAGUS: No significant abnormality. LYMPH NODES: No adenopathy within the axilla, mediastinum, or joesph. LUNGS: Bilateral lower lobe dependent atelectasis. Lungs otherwise appear clear. PLEURA: No pleural effusion. No pneumothorax. THORACIC SOFT TISSUES: No significant abnormality of the chest wall or upper thoracic musculature. BONES: No significant skeletal abnormalities. ADDITIONAL CHEST FINDINGS: None. UPPER ABDOMEN: No significant abnormality. IMPRESSION: 1. No CT evidence for pulmonary embolism. 2. No acute findings. Signer Name: Rasheed Zavaleta II, MD Signed: 12/21/2021 1:41 PM Workstation Name: [id number]
[2021-12-21] MEDS ORDERED: KETOROLAC 30 MG/1 ML INJ IV ONE (13:55)
[2021-12-21 14:46] VITALS: BP 121/80
--- NOTE | 2021-12-22 09:59 | Electrocardiograph Report ---
[facility] Test Date: 2021-12-21 Test Time: 11:35:59 Pat Name: MAGEN ALVARADO Department: Room: Gender: F Clean Room Assembler: GIOVANNA : 1975 Requested By: ALFREDO TAYLOR Order Number: [id number] Reading MD: Godwin Aguilar Measurements Intervals [place] Rate: 86 P: 45 [place]: 162 QRS: 45 QRSD: 84 T: 242 QT: 356 QTc: 427 Interpretive Statements Sinus rhythm Left atrial enlargement Probable left ventricular hypertrophy Nonspecific T abnormalities, diffuse leads Compared to ECG 11/22/2021 09:34:09 Atrial abnormality now present T-wave abnormality now present Electronically Signed On 12-22-2021 9:58:58 EST by Godwin Aguilar
== END 2021-12-21 14:47 | disposition home or self-care (01) ==
LOC: ED 10:18
DX: R07.9 Chest pain, unspecified (principal); I10 Essential (primary) hypertension; Z88.6 Allergy status to analgesic agent
CPT/HCPCS: 36415; 71275; 80053; 85027; 93005; 93010; 96361; 96374; 96375; 99284; J1885; J3010; J7030; Q9967; Q0162